=== PATIENT | female | born 1945 | race Caucasian/White ===

== ENCOUNTER → 2021-01-03 13:04 | Outpatient (BNVA) | payer MEDICARE, SELFPAY | PROVIDERS: PCP Internal Medicine; Visit Provider Hospitalist | DX: J98.11 Atelectasis (principal); R06.00 Dyspnea, unspecified; J98.19 Other pulmonary collapse; R91.1 Solitary pulmonary nodule | CPT/HCPCS: Q3014 ==

== ENCOUNTER 2021-08-01 12:54 | Outpatient (REF) | payer MEDICARE, SELFPAY ==
--- NOTE | 2021-08-01 17:44 | PFT_ITS ---
Forced vital capacity is slightly decreased. [id number], and MVV are normal. Post bronchodilator therapy, there is no significant change. Total lung capacity and residual volume have slightly decreased. Diffusion capacity is moderately decreased. CONCLUSION: These findings are consistent with mild restrictive pulmonary disorder. No significant obstructive airway disorder. Clinical correlation is recommended. MD TERI Crum/THOMAS / [id number]
== END 2021-08-01 12:55 | disposition home or self-care (01) ==
LOC: HO.RESP 12:54
PROVIDERS: Visit Provider Hospitalist
DX: R06.00 Dyspnea, unspecified (principal); J44.9 Chronic obstructive pulmonary disease, unspecified; J98.11 Atelectasis; J98.19 Other pulmonary collapse; R91.1 Solitary pulmonary nodule; J98.4 Other disorders of lung
CPT/HCPCS: 94060; 94727; 94729; 99212

== ENCOUNTER → 2022-02-13 14:30 | Outpatient (BNVA) | payer MEDICARE, SELFPAY | PROVIDERS: PCP Internal Medicine; Visit Provider Hospitalist | DX: J98.11 Atelectasis (principal); J98.19 Other pulmonary collapse; J98.4 Other disorders of lung; R06.00 Dyspnea, unspecified; R91.1 Solitary pulmonary nodule | CPT/HCPCS: 99212 ==

== ENCOUNTER → 2022-10-16 13:15 | Outpatient (BNVA) | payer MEDICARE, SELFPAY | PROVIDERS: PCP Family Medicine; Visit Provider Hospitalist | DX: J98.11 Atelectasis (principal); J98.19 Other pulmonary collapse; R91.1 Solitary pulmonary nodule; J98.4 Other disorders of lung; R06.00 Dyspnea, unspecified | CPT/HCPCS: 99212 ==

== ENCOUNTER 2023-06-12 11:43 | Outpatient (REF) | payer MEDICARE, SELFPAY ==
--- NOTE | 2023-06-12 12:42 | PFT_ITS ---
INDICATION: Right middle lobe syndrome. SPIROMETRY: FEV1 to FVC of 82% with an FEV1 of 1.54 L, which is 79% predicted and FVC of 1.88 L, which is 72% predicted. No significant response to bronchodilators noted. Maximum voluntary ventilation 65% predicted. LUNG VOLUMES: Total lung capacity 71% predicted. DIFFUSION CAPACITY: DLCO 62% predicted. It does improve to 92% predicted when correcting for the alveolar volume, however. COMPARISONS: None available at this time. INTERPRETATION: No obstructive ventilatory defects. No significant response to bronchodilators noted. There is a mild decrease in the maximum voluntary ventilation, likely secondary to deconditioning. Lung volumes also demonstrate a restrictive ventilatory defect consistent with mild restrictive lung disease. This is partly due to the atelectatic right middle lobe or other parenchymal lung conditions or neuromuscular conditions should be considered. The patient does have a mild diffusion impairment. It does correct to normal when correcting for the alveolar volume suggesting that it is likely hypo expansion. Clinical correlation warranted. MD JUAN RAMON Go/MODL / [id number]
== END 2023-06-12 11:44 | disposition home or self-care (01) ==
LOC: HO.RESP 11:43
PROVIDERS: PCP Family Medicine; Visit Provider Hospitalist
DX: R06.00 Dyspnea, unspecified (principal)
CPT/HCPCS: 94060; 94727; 94729

== ENCOUNTER → 2023-06-12 12:42 | Outpatient (BNV) | payer MEDICARE, SELFPAY | PROVIDERS: PCP Family Medicine; Visit Provider Hospitalist | DX: J98.19 Other pulmonary collapse (principal) | CPT/HCPCS: 94060; 94727; 94729 ==

== ENCOUNTER 2023-08-09 13:07 | Outpatient (AMB) | payer MEDICARE, SELFPAY ==
--- NOTE | 2023-08-09 13:21 | A.OFFVIS_ITS ---
Intake Vital Signs 08/09/23 13:22 Height 5 ft 3 in Weight 147 lb 11.355 oz BMI 26.2 BP 122/70 Blood Pressure Location Lt brachial Position Sitting Pulse 63 Pulse Source Pulse Oximeter Pulse Oximetry (%) 98 Oxygen Delivery Method Room Air Intake Visit Reasons: PFT/CT Chest Follow Up Allergies dextrose Allergy (Severe, Verified 08/09/23 13:21) Anaphylaxis propofol Allergy (Severe, Verified 08/09/23 13:21) Anaphylaxis pseudoephedrine [Sudafed] Allergy (Severe, Verified 08/09/23 13:21) Rash and Hives Erythromycin Allergy (Severe, Uncoded 08/09/23 13:21) Rash and Hives Comment HPI HPI Comments History of Present Illness Details The patient is a 78-year-old woman with known right middle lobe syndrome in addition to asthma. She has been doing very well overall. She has been active. She does get some shortness of breath with activity. Mild in severity. Has not had any recent respiratory infections. She does have a flutter valve that she bought with her only and she tries to use it at times. I encouraged her to use at least once a day when she is doing okay it up to 4 times a day when she is sick. She is monitoring closely her reflux disease. She continues to take a PPI since she has had problems with peptic ulcers in the past. But she understands that she continues with head of bed elevated in continues with the reflux diet. I did give her a copy make sure she follows that closely. She did have a recent CT scan of the chest that we personally reviewed here in the office demonstrating persistent right middle lobe atelectatic areas with fibrotic changes. With an elevated right hemidiaphragm. Otherwise stable pulmonary nodules. 06/27/2020 the patient is here for pulmonary follow-up visit. Overall she has been doing well. She continues use the flutter valve once or twice a day. She does continue with the cough. [id number] severity. We again reviewed her previous CT scans done at [facility] demonstrating the issue along the right middle lobe. It appears that the major issue is right at the proximal right middle lobe airway and then subsequent after that the airway does open up. Patient also has pulmonary nodules that need follow-up. Therefore, she will need a repeat CT scan of the chest June 2020 to follow-up with the abnormal findings on her last CT scan in her ongoing symptoms. If the process has gotten significantly worse specially in the right middle lobe then we will talk about repeating the bronchoscopy to further assess. 01/03/2021 the patient is here for pulmonary follow-up visit. Overall she is doing relatively well. She has been complaining of worsening dyspnea on exertion. Specially when going up a flight of stairs or to. Usually she needs to stop and rest. She has been noticing this more in the last several months. She has had some waking in the last few months as well. She denies any chest discomfort or pressure when she develops dyspnea symptoms. She has not had a cardiac workup. She does have coughing intermittently. At home she does have a flutter valve and she does use it for chest physical therapy. She did have a repeat CT scan back in fall 2019 demonstrating no significant interval changes in the atelectasis of the right middle lobe. Her pulmonary nodules are also stable. During the office visit we did go for 6 minutes walk test. The patient initially at rest she was saturating 95% in with increasing activity she actually improved of to 90%. Her Shock score was about 4/24. 08/01/2021 the patient is here for a pulmonary follow-up visit. Overall she is doing well. She does complaint of some dyspnea on exertion. Also has had a cough which appears to be more productive in nature. She is still able to expectorate and the color is clear. Mild in severity at this time. The patient did undergo pulmonary function studies which were personally by me. It appears that her total lung capacity is decreased consistent with mild restrictive lung disease. In addition to that she has a moderate diffusion impairment that is out of proportion to the restriction. Not clear if is mainly due to the atelectasis of the right middle lobe. In the meantime she needs to have blood work done in addition to hemoglobin to rule out anemia. we did review her last CT scan of the chest does done back in June 2020 demonstrating multiple pulmonary nodules in addition to the atelectasis to the right middle lobe as well as elevation of the right hemidiaphragm. In view of her ongoing symptoms, the abnormal PFTs and her history of pulmonary nodules in cancer a however repeat the CT scan of the chest at this time. if the atelectasis is appears to be worse we need to consider bronchoscopy to address the right middle lobe syndrome. 02/13/2022 the patient is here for a pulmonary follow-up visit. Since we last spoke she did develop a case of bronchitis. She did take the Augmentin her symptoms improved. She still has the cough typically worse in the morning. Typically congested in the morning with clear mucus. She is able to clear the secretions and usually refined rest of the day. She does have allergies. She is reluctant to take any medications at this time. In regards of her CT scan we did review her CT scan that she had back in August 2021 demonstrating stable pulmonary nodules. She also has the persistent atelectasis of the right middle lobe due to the right middle lobe syndrome. She also has significant volume loss on the right. Currently the patient is being evaluated for increased white count. She did carry a diagnosis of CLL in the past and now will have repeat blood work and a referral to Hematology. Hopefully all the blood work comes back okay. Will follow-up sometime in August with repeat chest x-ray. 10/16/2022 the patient is here for a pulmonary follow-up visit. Overall she continues to do well. In the fall she did have a bout of bronchitis requiring the Augmentin. After worse 5-7 days she did improved. Sometimes she does have episodic shortness of breath. We did talk about trying a rescue inhaler. When she returns in the fall will have her undergo pulmonary function studies. We did review her CT scan of the chest that she had back in August 2022. No significant changes in the atelectasis of the elevated right hemidiaphragm. She does have the atelectasis in the right middle lobe due to the right middle lobe syndrome. It appears that is partially open she is getting some air into the right middle lobe which is reassuring. She does have an Acapella valve and she does practice her chest physical therapy. Also walking in the breathing tried help open up that airway. If the patient has more episodes of bronchitis or has any worsening respiratory symptoms she is to call we can consider a bronchoscopy to further visualize start right middle lobe again. 08/09/2023 the patient is here for pulmonary follow-up visit. Overall the patient has been doing well. She did go to [place] and she came back sick and she had to take Augmentin which was affecting beneficial. The patient has been well after that. She does have her flutter valve and she does try to exercise regularly. We did talk about the importance of chest PT specially with right middle lobe syndrome. The patient did have a pulmonary function study done demonstrating a mild restriction and a mild diffusion impairment consistent with her findings. In addition to that she did have a CT scan of the chest demonstrating the persistent elevation of the right hemidiaphragm along with the atelectasis of the right middle lobe and other granulomas and with her lungs. Also noted was a small pericardial effusion. I did reassure the patient that this is unlikely to be anything of any significance but will be reasonable to get an echo to make sure that we can better visualize the heart. If she has any abnormalities then a cardiology evaluation or follow-up may be warranted. [facility] Medical History (Updated 08/09/23 @ 20:[address] MD) Pericardial effusion Chronic restrictive lung disease Pulmonary nodule Right middle lobe syndrome Dyspnea Atelectasis Social History (Updated 08/01/21 @ 14:19 by Venus Ayoub Eagle) Patient Tobacco Use Status: Former Tobacco user Tobacco use type: Cigarette Years Smoked: 5 years Review of Systems Const Denies night sweats ENT Denies change in voice, Denies lip swelling, Denies mouth pain, Reports nasal congestion, Reports nasal discharge and Denies tongue swelling Card Denies chest pain and Denies dyspnea on exertion Resp Denies chest congestion, Reports cough and Denies dyspnea on exertion GI Denies abdominal pain Musc Denies no additional complaints Neuro Denies Neuro-related abnormal movements Psych Denies no additional complaints Esau/Lymph Denies easy bleeding and Denies lymphadenopathy Aller/Immun Denies lip swelling and Denies tongue swelling Physical Exam Vital Signs: Last Vital Signs Pulse 63 08/09/23 13:22 BP 122/70 08/09/23 13:22 Pulse Ox 98 08/09/23 13:22 Oxygen Delivery Method Room Air 08/09/23 13:22 BMI result Body Mass Index 26.2 Const General: alert Neck Neck: Yes normal visual inspection, Yes full ROM and Yes no lymphadenopathy Chest Chest palpation & inspection: normal inspection of the chest Resp Effort & Inspection: normal respiratory effort Auscultation: diminished lung sounds Cardio Rate: regular rate Rhythm: regular rhythm Heart sounds: S1 normal heart sound present and S2 normal heart sound present GI Inspection: Yes visible pulsation Palpation (GI): Soft to palpation and nontender Auscultation: normal bowel sounds Skin General skin exam: rashes and/or lesions noted Extrem General: Yes no clubbing, cyanosis or edema Assessment & Plan Assessment & Plan (1) Pericardial effusion: Code(s): I31.39 - Other pericardial effusion (noninflammatory) (2) Atelectasis: Code(s): J98.11 - Atelectasis (3) Right middle lobe syndrome: Code(s): J98.19 - Other pulmonary collapse (4) Pulmonary nodule: Code(s): R91.1 - Solitary pulmonary nodule (5) Chronic restrictive lung disease: Comment: Due to RML atelectasis Code(s): J98.4 - Other disorders of lung Plan Continue CPT with flutter valve start VINCENT as needed Consider bronchosocpy is worsens ECHO to assess pericardial effusion CT chest in year F/U 12 months Orders: Orders CA echo transthoracic complete Today I31.39 - Other pericardial effusion (noninflammatory) CT chest wo IV con 364 Days J98.11 - Atelectasis, J98.19 - Other pulmonary collapse, R91.1 - Solitary pulmonary nodule Medications: Refilled amoxicillin-pot clavulanate 875-125 mg 1 tab PO BID 14 days 28 tabs 0RF Coding Level of Care Code Est Pt Level 4 (98716) Diagnoses Pericardial effusion I31.39 Atelectasis J98.11 Right middle lobe syndrome J98.19 Pulmonary nodule R91.1 Chronic restrictive lung disease J98.4 Time Spent (min) 17
[2023-08-09 13:22] VITALS: BP 122/70; PULSE 63; O2SAT 98; BMI 26.2
== END 2023-08-09 13:55 | disposition home or self-care (01) ==
PROVIDERS: PCP Family Medicine; Visit Provider Hospitalist
DX: I31.39 Other pericardial effusion (noninflammatory) (principal); J98.11 Atelectasis; J98.19 Other pulmonary collapse; R91.1 Solitary pulmonary nodule; J98.4 Other disorders of lung
CPT/HCPCS: 99214

== ENCOUNTER → 2023-08-09 13:07 | Outpatient (BNVA) | payer MEDICARE, SELFPAY | PROVIDERS: PCP Family Medicine; Visit Provider Hospitalist | DX: R91.1 Solitary pulmonary nodule (principal); J98.19 Other pulmonary collapse; J98.4 Other disorders of lung; J98.11 Atelectasis; I31.39 Other pericardial effusion (noninflammatory) | CPT/HCPCS: 99212 ==

== ENCOUNTER → 2023-09-06 14:03 | Outpatient (REF) | payer MEDICARE, SELFPAY ==
--- NOTE | 2023-09-06 14:05 | CA_ITS ---
Transthoracic Echocardiogram Patient (Last, First, Middle): Joselyn Peres J Gender: Female Date of : 1945 Age: 78 Procedure Date: 09/06/2023 Procedure Type: Transthoracic Echocardiogram Location: OP Height: 160.02 cm Weight: 65.32 kg BSA: 1.68 m2 Heart Rate: bpm BP: 126 / 82 mmHg Paper Pattern Folder: TO Referring MD: Misael Lane MD Symptoms: I31.39 - Other pericardial effusion (noninflammatory) Study Quality: Fair ECG Rhythm: Sinus Conclusions: - The left ventricular systolic function is normal. The calculated ejection fraction is 67% by biplane method. - No obvious valvular pathology seen on this study. - There is no evidence of pulmonary hypertension. - There is no evidence of pericardial effusion. Findings Left Ventricle Normal left ventricular cavity size. There is normal left ventricular wall thickness. The left ventricular systolic function is normal. The calculated ejection fraction is 67% by biplane method. There is no evidence of regional wall motion abnormalities. Diastolic function is normal for age. Right Ventricle Normal right ventricular cavity size and systolic function. Atria Both atria are normal in size. Aortic Valve There is a normal trileaflet aortic valve. There is no aortic valve stenosis. There is no aortic valve regurgitation. Mitral Valve The mitral valve appears normal. There is mild mitral annular calcification. There is trace mitral valve regurgitation. There is no mitral valve stenosis. Pulmonic Valve The pulmonic valve is likely normal. Tricuspid Valve Normal tricuspid valve structure. There is trace tricuspid valve regurgitation. There is no evidence of pulmonary hypertension. Great Vessels The asc aorta is normal in size. Small plaque is seen in the sino tubular ridge. Venous The inferior vena cava is normal in size and collapses greater than 50% with inspiration. Pericardium/Pleural There is no evidence of pericardial effusion. Prior Study Comparison No prior study available for comparison. Recommendations, Care & Conclusions No obvious valvular pathology seen on this study. Measurements 2D Linear Measurements IVSd: 1.04 0.6-0.9/0.6-1.0 cm LVIDd: 4.02 3.9-5.3/4.2-5.9 cm LVIDd Index: 2.39 2.4-3.2/2.2-3.1 cm/m2 LVIDs: 2.32 2.0-3.6 cm LVPWd: 0.83 0.7-1.1 cm LA Diam: 3.40 2.7-3.8/3.0-4.0 cm LAIDs Index: 2.02 1.5-2.3 cm/m2 LV Mass: 145.38 67-162/88-224 g LV Mass Index: 86.54 43-95/49-115 g/m2 LVOT Diam: 1.90 3.0+(-)1.3 cm 2D Systolic Function EF 4C: 65.10 >55% EF 2C: 69.20 >55% EF BiP: 67.00 >55% Mitral Valve MV Pk E: 0.86 MV PK A: 0.64 MV Decel Time: 212.00 E/A: 1.30 E'Lateral: 6.64 E'Medial: 4.03 E/E' Med: 21.40 E/E' Lat: 13.00 PHT: 62.00 MVA PHT: 3.55 Decel Wayne: 4.07 Aortic Valve AoV Pk Sarmad: 1.25 AoV Mn Sarmad: 0.91 AoV VTI: 0.32 AoV Pk Grad: 6.00 Aov Mn Grad: 4.00 BERNICE Cont.VTI: 2.27 LVOT LVOT Pk Sarmad: 1.06 LVOT Mn Sarmad: 0.73 LVOT VTI: 0.26 LVOT Pk Grad: 4.00 LVOT Mn Grad: 2.00 LVOT Diam: 1.90 LVOT Area: 2.84 Diastolic Function MV Pk E: 0.86 MV Pk A: 0.64 E/A: 1.30 E'Medial: 4.03 E/E' Med: 21.40 E' Laterial: 6.64 E/E' Lat: 13.00 Right Ventricle TAPSE (mm): 22.40 TVS' Sarmad: 14.00 Tricuspid Valve TR Pk Sarmad: 2.21 TR Pk Grad: 20.00 RA Press: 3.00 RVSP: 23.00 Great Vessels Aorta Sinus of Valsalva: 3.25 2.0-3.[address] Ridge: 2.18 1.7-3.4 cm Ao Asc: 3.20 2.1-3.4 cm Updated in Other Vendor System with Status of Final Mikhail Arriaga MD electronically signed on 09/07/2023 2:08:22 PM with status of Final
== END ==
LOC: HO.CARD 14:03
PROVIDERS: PCP Family Medicine; Visit Provider Hospitalist
DX: I31.39 Other pericardial effusion (noninflammatory) (principal)
CPT/HCPCS: 93306

== ENCOUNTER → 2023-09-06 14:05 | Outpatient (BNV) | payer MEDICARE, SELFPAY | PROVIDERS: PCP Family Medicine; Visit Provider Internal Medicine | DX: I34.81 Nonrheumatic mitral (valve) annulus calcification (principal) | CPT/HCPCS: 93306 ==

== ENCOUNTER 2024-08-14 14:12 | Outpatient (AMB) | payer MEDICARE, SELFPAY ==
--- NOTE | 2024-08-14 14:22 | A.OFFVIS_ITS ---
Vital Signs 08/14/24 14:23 Height 5 ft 3 in Weight 145 lb 8.081 oz BMI 25.8 BP 132/70 Blood Pressure Location Lt brachial Position Sitting Pulse 82 Pulse Source Pulse Oximeter Pulse Oximetry (%) 97 Oxygen Delivery Method Room Air Intake Visit Reasons: COPD [employer] P[employer] Required: No Senior Director Marketing: Senior Director Marketing offered & declined Accompanied by: Self / Same As Patient Allergies dextrose Allergy (Severe, Verified 08/14/24 14:27) Anaphylaxis propofol Allergy (Severe, Verified 08/14/24 14:27) Anaphylaxis pseudoephedrine [Sudafed] Allergy (Severe, Verified 08/14/24 14:27) Rash and Hives Erythromycin Allergy (Severe, Uncoded 08/14/24 14:27) Rash and Hives Comment Medication List - Last Reconciled 08/14/24 by Keisha Kelly LPN albuterol sulfate 90 mcg/actuation 2 inhalations inhalation Q6H PRN 30 days amoxicillin-pot clavulanate 875-125 mg 1 tab PO BID 14 days aspirin 81 mg PO DAILY atenolol [id number] mg PO DAILY cholecalciferol (vitamin D3) 50 mcg PO DAILY epinephrine 0.3 mL IM ONCE PRN esomeprazole magnesium mg PO fluticasone propionate 44 mcg/actuation inhalation PRN hydrochlorothiazide 25 mg PO DAILY metronidazole 0.75% appl topical BID mometasone 50 mcg/actuation 2 sprays intranasal DAILY HPI Comments Details: The patient is a 79 She does get some shortness of breath with activity. Mild in severity. Has not had any recent respiratory infections. She does have a flutter valve that she bought with her only and she tries to use it at times. I encouraged her to use at least once a day when she is doing okay it up to 4 times a day when she is sick. She is monitoring closely her reflux disease. She continues to take a PPI since she has had problems with peptic ulcers in the past. But she understands that she continues with head of bed elevated in continues with the reflux diet. I did give her a copy make sure she follows that closely. She did have a recent CT scan of the chest that we personally reviewed here in the office demonstrating persistent right middle lobe atelectatic areas with fibrotic changes. With an elevated right hemidiaphragm. Otherwise stable pulmonary nodules. 06/27/2020 the patient is here for pulmonary follow-up visit. Overall she has been doing well. She continues use the flutter valve once or twice a day. She does continue with the cough. [id number] severity. We again reviewed her previous CT scans done at [facility] demonstrating the issue along the right middle lobe. It appears that the major issue is right at the proximal right middle lobe airway and then subsequent after that the airway does open up. Patient also has pulmonary nodules that need follow-up. Therefore, she will need a repeat CT scan of the chest June 2020 to follow-up with the abnormal findings on her last CT scan in her ongoing symptoms. If the process has gotten significantly worse specially in the right middle lobe then we will talk about repeating the bronchoscopy to further assess. 01/03/2021 the patient is here for pulmonary follow-up visit. Overall she is doing relatively well. She has been complaining of worsening dyspnea on exertion. Specially when going up a flight of stairs or to. Usually she needs to stop and rest. She has been noticing this more in the last several months. She has had some waking in the last few months as well. She denies any chest discomfort or pressure when she develops dyspnea symptoms. She has not had a cardiac workup. She does have coughing intermittently. At home she does have a flutter valve and she does use it for chest physical therapy. She did have a repeat CT scan back in fall 2019 demonstrating no significant interval changes in the atelectasis of the right middle lobe. Her pulmonary nodules are also stable. During the office visit we did go for 6 minutes walk test. The patient initially at rest she was saturating 95% in with increasing activity she actually improved of to 90%. Her Charlotte score was about 4/24. 08/01/2021 the patient is here for a pulmonary follow-up visit. Overall she is doing well. She does complaint of some dyspnea on exertion. Also has had a cough which appears to be more productive in nature. She is still able to expectorate and the color is clear. Mild in severity at this time. The patient did undergo pulmonary function studies which were personally by me. It appears that her total lung capacity is decreased consistent with mild restrictive lung disease. In addition to that she has a moderate diffusion impairment that is out of proportion to the restriction. Not clear if is mainly due to the atelectasis of the right middle lobe. In the meantime she needs to have blood work done in addition to hemoglobin to rule out anemia. we did review her last CT scan of the chest does done back in June 2020 demonstrating multiple pulmonary nodules in addition to the atelectasis to the right middle lobe as well as elevation of the right hemidiaphragm. In view of her ongoing symptoms, the abnormal PFTs and her history of pulmonary nodules in cancer a however repeat the CT scan of the chest at this time. if the atelectasis is appears to be worse we need to consider bronchoscopy to address the right middle lobe syndrome. 02/13/2022 the patient is here for a pulmonary follow-up visit. Since we last spoke she did develop a case of bronchitis. She did take the Augmentin her symptoms improved. She still has the cough typically worse in the morning. Typically congested in the morning with clear mucus. She is able to clear the secretions and usually refined rest of the day. She does have allergies. She is reluctant to take any medications at this time. In regards of her CT scan we did review her CT scan that she had back in August 2021 demonstrating stable pulmonary nodules. She also has the persistent atelectasis of the right middle lobe due to the right middle lobe syndrome. She also has significant volume loss on the right. Currently the patient is being evaluated for increased white count. She did carry a diagnosis of CLL in the past and now will have repeat blood work and a referral to Hematology. Hopefully all the blood work comes back okay. Will follow-up sometime in August with repeat chest x-ray. 10/16/2022 the patient is here for a pulmonary follow-up visit. Overall she continues to do well. In the fall she did have a bout of bronchitis requiring the Augmentin. After worse 5-7 days she did improved. Sometimes she does have episodic shortness of breath. We did talk about trying a rescue inhaler. When she returns in the fall will have her undergo pulmonary function studies. We did review her CT scan of the chest that she had back in August 2022. No significant changes in the atelectasis of the elevated right hemidiaphragm. She does have the atelectasis in the right middle lobe due to the right middle lobe syndrome. It appears that is partially open she is getting some air into the right middle lobe which is reassuring. She does have an Acapella valve and she does practice her chest physical therapy. Also walking in the breathing tried help open up that airway. If the patient has more episodes of bronchitis or has any worsening respiratory symptoms she is to call we can consider a bronchoscopy to further visualize start right middle lobe again. 08/09/2023 the patient is here for pulmonary follow-up visit. Overall the patient has been doing well. She did go to [place] and she came back sick and she had to take Augmentin which was affecting beneficial. The patient has been well after that. She does have her flutter valve and she does try to exercise regularly. We did talk about the importance of chest PT specially with right middle lobe syndrome. The patient did have a pulmonary function study done demonstrating a mild restriction and a mild diffusion impairment consistent with her findings. In addition to that she did have a CT scan of the chest demon strating the persistent elevation of the right hemidiaphragm along with the atelectasis of the right middle lobe and other granulomas and with her lungs. Also noted was a small pericardial effusion. I did reassure the patient that this is unlikely to be anything of any significance but will be reasonable to get an echo to make sure that we can better visualize the heart. If she has any abnormalities then a cardiology evaluation or follow-up may be warranted. 08/14/2024 the patient is here for a pulmonary follow-up visit. Overall she is doing very good. Overall her respiratory status been stable. Her major issue is that she had a bad fall hurting both her knees and therefore she has been a little bit limited as far as activity. As far as respiratory infections he has been able to stay away from Infectious circumstances by wearing a mask. The patient has had to use Augmentin the last year once. The patient did have a CT scan of the chest in 06/19/2024 which we personally reviewed. No significant changes in the calcified nodules and no significant changes in the atelectasis. Would clearly look that the right middle lobe airway demonstrating just a proximal obstruction likely due to cartilage that is likely malposition. But otherwise she is doing good she is working on deep breathing exercises and she does have an Acapella valve. She should continue to do so. And then if she does get any kind of respiratory symptoms she should start treatment quickly to avoid a right middle lobe pneumonia. Will follow-up in a year's time. Her CT scan has been stable for many years therefore will follow-up with the regular x- ray for the next visit. [facility] Medical History (Updated 08/09/23 @ 20:[address] MD) Pericardial effusion Chronic restrictive lung disease Pulmonary nodule Right middle lobe syndrome Dyspnea Atelectasis Social History (Updated 08/14/24 @ 14:29 by Keisha Kelly LPN) Patient Tobacco Use Status: Former Tobacco user Tobacco use type: Cigarette Years Smoked: 5 years Review of Systems Const Denies night sweats ENT Denies change in voice, Denies lip swelling, Denies mouth pain, Reports nasal congestion, Reports nasal discharge and Denies tongue swelling Card Denies chest pain and Denies dyspnea on exertion Resp Denies chest congestion, Reports cough and Denies dyspnea on exertion GI Denies abdominal pain Musc Denies no additional complaints Neuro Denies Neuro-related abnormal movements Psych Denies no additional complaints Esau/Lymph Denies easy bleeding and Denies lymphadenopathy Aller/Immun Denies lip swelling and Denies tongue swelling Physical Exam Vital Signs: Last Vital Signs Pulse 82 08/14/24 14:23 BP 132/70 08/14/24 14:23 Pulse Ox 97 08/14/24 14:23 Oxygen Delivery Method Room Air 08/14/24 14:23 BMI result Body Mass Index 25.8 Const General: alert Neck Neck: Yes normal visual inspection, Yes full ROM and Yes no lymphadenopathy Chest Chest palpation & inspection: normal inspection of the chest Resp Effort & Inspection: normal respiratory effort Auscultation: diminished lung sounds Cardio Rate: regular rate Rhythm: regular rhythm Heart sounds: S1 normal heart sound present and S2 normal heart sound present GI Inspection: Yes visible pulsation Palpation (GI): Soft to palpation and nontender Auscultation: normal bowel sounds Skin General skin exam: rashes and/or lesions noted Extrem General: Yes no clubbing, cyanosis or edema Assessment & Plan Assessment & Plan (1) Atelectasis: Code(s): J98.11 - Atelectasis Category: Medical (2) Right middle lobe syndrome: Code(s): J98.19 - Other pulmonary collapse Category: Medical (3) Pulmonary nodule: Code(s): R91.1 - Solitary pulmonary nodule Category: Medical (4) Chronic restrictive lung disease: Comment: Due to RML atelectasis Code(s): J98.4 - Other disorders of lung Category: Medical Plan Continue CPT with flutter valve VINCENT as needed CXR F/U 12 months Orders: Orders XR chest 2V Today J98.19 - Other pulmonary collapse Medications: Refilled amoxicillin-pot clavulanate 875-125 mg 1 tab PO BID 14 days 28 tabs 0RF Coding Level of Care Code Est Pt Level 4 (47080) Diagnoses Atelectasis J98.11 Right middle lobe syndrome J98.19 Pulmonary nodule R91.1 Chronic restrictive lung disease J98.4 Time Spent (min) 17
[2024-08-14 14:23] VITALS: BP 132/70; PULSE 82; O2SAT 97; BMI 25.8
== END 2024-08-14 14:58 | disposition home or self-care (01) ==
PROVIDERS: PCP Family Medicine; Visit Provider Hospitalist
DX: J98.11 Atelectasis (principal); J98.19 Other pulmonary collapse; R91.1 Solitary pulmonary nodule; J98.4 Other disorders of lung
CPT/HCPCS: 99214

== ENCOUNTER → 2024-08-14 14:12 | Outpatient (BNVA) | payer MEDICARE, SELFPAY | PROVIDERS: PCP Family Medicine; Visit Provider Hospitalist | DX: J98.11 Atelectasis (principal); J98.19 Other pulmonary collapse; J98.4 Other disorders of lung; R91.1 Solitary pulmonary nodule | CPT/HCPCS: 99212 ==